=== PATIENT | female | born 1970 | race Two or more races ===

== ENCOUNTER 2020-01-15 09:57 | Outpatient (REF) | payer OTHER, SELFPAY | END 2020-01-15 09:58 | disposition home or self-care (01) | LOC: HO.WFDLDS 09:57 | PROVIDERS: Visit Provider Internal Medicine | DX: Z20.828 Contact with and (suspected) exposure to other viral communicable diseases (principal) | CPT/HCPCS: 87635 ==

== ENCOUNTER 2020-07-08 | Outpatient (REF) | payer OTHER, SELFPAY | END 2020-07-08 00:01 | disposition home or self-care (01) | LOC: HO.LNP | PROVIDERS: Visit Provider Family Medicine | DX: Z20.822 Contact with and (suspected) exposure to COVID-19 (principal); R05 Cough | CPT/HCPCS: U0003; U0005 ==

== ENCOUNTER 2020-11-13 10:17 | Outpatient (REF) | payer OTHER, SELFPAY | END 2020-11-13 10:18 | disposition home or self-care (01) | LOC: HO.WFDLDS 10:17 | PROVIDERS: Visit Provider Internal Medicine | DX: Z20.822 Contact with and (suspected) exposure to COVID-19 (principal) | CPT/HCPCS: C9803; U0003; U0005 ==